=== PATIENT | male | born 1990 | race Caucasian/White ===

== ENCOUNTER 2019-05-18 05:25 | Emergency (ER) | payer OTHER, SELFPAY ==
[2019-05-18 05:27] VITALS: BP 123/87; PULSE 113; RESP 16; TEMP 36.4; O2SAT 95; BMI 36.6
--- NOTE | 2019-05-18 05:40 | RAD_ITS ---
STUDY: X-RAY CHEST REASON FOR EXAM: Male, 28 years old. abd pain, n/v/d since 0030. productive cough for 2 weeks. TECHNIQUE: Single frontal view of the chest. COMPARISON: None. FINDINGS: The lungs are clear and expanded. There is no demonstrated pleural abnormality. Normal size heart. Normal mediastinum and franco. Normal visualized pulmonary arteries. Normal visualized aortic arch and descending thoracic aorta. Normal visualized thoracic spine. Normal visualized ribs, clavicles, and shoulders. There is no demonstrated abnormality of the visualized soft tissue structures of the upper abdomen. RAD/Chest 1 View (Portable) IMPRESSION: Normal x-ray examination of the chest. Electronically Signed: Juan Garcia MD at 6:31 EDT Tel , Service support ,
[2019-05-18] MEDS: Ondansetron 4 MG/2 ML Vial IV (05:57)
[2019-05-18] MEDS: 0.9% Normal Saline 1,000 ML 1000 ML IV (05:57)
[2019-05-18 06:15] LABS: Absolute Lymphocyte Count 0.61 X10^3/uL (0.83-4.51); Absolute Neutrophil Count 8.6 X10^3/uL (2.0-7.7); Basophil# 0.02 X10^3/uL; Basophil% 0.2 % (0-1); Eosinophil# 0.02 X10^3/uL; Eosinophils% 0.2 % (0-5); Hematocrit 48.8 % (40-54); Hemoglobin 16.7 g/dL (13.0-16.5); Lymphocyte # 0.61 X10^3/ul (4.0); Lymphocyte % 6.2 % (19-41); Mean Corp Hgb Conc 34.2 g/dL (32-36); Mean Corpuscular Hgb 29.5 pg (27.0-32.0); Mean Corpuscular Volume 86.1 fL (80-94); Mean Platelet Vol. 11.1 fl (6.2-12.0); Monocyte% 6.1 % (0-10); NRBC Flagged by Analyzer 0 % (0-5); Neutrophil # 8.58 X10^3/uL (2.7-7.7); Neutrophil % 86.8 % (47-70); Platelet Count 188 K/mm3 (150-450); RBC Distribution Width CV 12.6 % (11.6-14.6); RBC Distribution Width SD 39.5 fl (35.1-43.9); Red Blood Count 5.67 M/mm3 (4.6-6.2); White Blood Count 9.9 K/mm3 (4.4-11.0)
--- NOTE | 2019-05-18 06:20 | ED.DCSUM_ITS ---
- ER Visit Summary Date of Service: 05/18/19 Chief Complaint: [Nausea, vomiting, diarrhea] History of Present Illness: The patient is a 28 M [presents to the emergency department with symptoms that started 2 hours ago. Patient states that he is thrown up about 4 5 times and has had about 6 episodes of watery stool. He describes some mid abdomen pain/cramping. Patient states that he has had a cough and sore throat for about a week and a half. Cough is nonproductive. Patient's had intermittent headaches for the last several days. He has had exposure to some friends that have had colds. He denies recent travel. He denies any exposures to patients with novel coronavirus. Patient has no medical history otherwise. He denies eating any undercooked foods.] Physical Examination: [HEENT-PERRLA, EOMI. Cranial nerves II through XII grossly intact. TMs clear. Mucous membranes moist. No adenopathy. Cardiovascular-regular and tachycardic. No murmurs auscultated. Lungs-clear to auscultation, chest wall stable without crepitus or subcu emphysema Abdomen-normoactive bowel sounds, soft, nontender, no rebound or rigidity, no peritoneal signs. Extremities-intact ?4, normal range of motion, normal pulses, atraumatic] Test Results: [CBC with differential obtained showed a white count of 9.9, hemoglobin 16.7, hematocrit 48, plates 188.] Chemistries unremarkable. Influenza was negative. Chest x-ray normal. Emergency Department Course and Treatment: [Patient received a liter normal same fluid bolus. Patient given Zofran 4 mg IV.] Treatment Plan: [Patient will be given a prescription for Zofran. Patient advised to quarantine self or 2 weeks. He understands I cannot rule out novel coronavirus as possible etiology for his symptomatology. Patient advised to return to the ER if increased difficulty breathing or condition should worsen anyway. Patient is otherwise young and healthy.] Disposition: [Discharged home in stable condition] Impression: [Viral URI Viral gastroenteritis] This note was generated with [employer] software. It may contain incorrect words, spelling, and punctuation that were not noted in review of the chart prior to signing ED Disposition - Plan for ED Patient: Referrals: Gilmer Pruett MD [Primary Care Provider] -
[2019-05-18 06:33] LABS: Anion Gap 9 (5-15); BUN 17 mg/dL (7-18); Calcium,Total 9.1 mg/dL (8.5-10.1); Chloride 107 mmol/L (98-107); EST Glomerular Filtration Rate 95 mL/min (>60); Est Glom Filt Rate - Afr Amer 115 mL/min (>60); Estimated Creatinine Clearance 107.35 ml/min; Glucose 129 mg/dL (74-106); Potassium 3.8 mmol/L (3.5-5.1); Sodium Level 139 mmol/L (136-145)
--- NOTE | 2019-05-18 06:46 | ED.DEP ---
ED Disposition - Plan for ED Patient: Instructions: URI, Viral, No Abx (Adult), GASTROENTERITIS, Viral (7y-Adult) Referrals: Gilmer Pruett MD [Primary Care Provider] - 10-14 Days if not better
--- NOTE | 2019-05-18 06:48 | ED.DEP ---
ED Disposition - Plan for ED Patient: Instructions: GASTROENTERITIS, Viral (7y-Adult), URI, Viral, No Abx (Adult) Prescriptions: Ondansetron [Zofran Odt] 4 mg PO Q8H PRN PRN #10 tab PRN Reason: Nausea Prescription Printed Referrals: Gilmer Pruett MD [Primary Care Provider] - 10-14 Days if not better
[2019-05-18 06:57] VITALS: PULSE 88; RESP 16; O2SAT 99
== END 2019-05-18 06:59 | disposition home or self-care (01) ==
PROVIDERS: Emergency Provider Emergency Medicine; PCP Family Medicine
DX: J06.9 Acute upper respiratory infection, unspecified (principal); A08.4 Viral intestinal infection, unspecified
CPT/HCPCS: 71045; 80048; 85025; 87804; 96361; 96374; 99283; J7030; A4216; J2405